=== PATIENT | male | born 1970 | race Asian ===

== ENCOUNTER 2017-03-07 08:15 | Inpatient (IN) | payer BC ==
[~2017-03-07 08:15] MED LIST: POVIDONE-IODINE 20 ML in SODIUM CL IRRIG SOLUTION 500 ML IRR ONE; ROPIVACAINE 0.2% 80 MG, EPINEPHrine 0.2 MG, KETOROLAC TROMETHAMINE 30 MG in BAG 0 ML IU ONE; TRANEXAMIC ACID 1,360 MG in NS 100 ML IV ONE
[2017-03-07] MEDS ORDERED: ceFAZolin 1 GM/5 ML SYR ONE ×2 (08:30→10:42)
[2017-03-07] MEDS ORDERED: FAMOTIDINE 20 MG TAB PO ONE (09:05)
[2017-03-07] MEDS ORDERED: ACETAMINOPHEN 325 MG TAB PO ONE (09:05)
[2017-03-07] MEDS ORDERED: DEXAMETHASONE 4 MG/ML VIAL IVP ONE (09:05)
[2017-03-07] MEDS ORDERED: ceFAZolin 2 GM/DEXTROSE 100 ML IV ONE (09:05)
[2017-03-07] MEDS ORDERED: LIDOCAINE 1% 2 ML INJ ID PRN (09:07)
[2017-03-07] MEDS ORDERED: LR 1,000 ML IV ONE (09:07)
[2017-03-07] MEDS ORDERED: CEFAZOLIN 1 GM/DEXTROSE/50 ML BAG IV ONE (09:34)
[2017-03-07] MEDS ORDERED: CEFAZOLIN 2 GM/DEXTROSE/100 ML BAG IV ONE (09:46)
--- NOTE | 2017-03-07 10:07 | PDHPUP ---
History & Physical Update H&P update statement: This history and physical update is based on an assessment of the patient which was completed after admission or registration (within 24 hours), but prior to the surgery/procedure. H&P update: H&P reviewed & patient examined, no change in patient's condition since H&P completed
[2017-03-07] MEDS ORDERED: MIDAZOLAM 2 MG/2 ML VIAL ONE (10:43)
[2017-03-07] MEDS ORDERED: MIDAZOLAM 2 MG/2 ML VIAL IVP ONE (10:44)
--- NOTE | 2017-03-07 10:45 | PDANEPAE ---
ANE History of Present Illness r hip pain, arthritis ANE Past Medical History - Cardiovascular History Hx Hypertension: No Hx Arrhythmias: No Hx Chest Pain: No Hx Coronary Artery / Peripheral Vascular Disease: No Hx CHF / Valvular Disease: No Hx Palpitations: No - Pulmonary History Hx COPD: No Hx Asthma/Reactive Airway Disease: No Hx Recent Upper Respiratory Infection: No Hx Oxygen in Use at Home: No Hx Sleep Apnea: No Sleep Apnea Screening Result - Last Documented: Negative - Neurologic History Hx Cerebrovascular Accident: No Hx Seizures: No Hx Dementia: No - Endocrine History Hx Diabetes: No - Renal History Hx Renal Disorders: No - Liver History Hx Hepatic Disorders: No - Neurological & Psychiatric Hx Hx Neurological and Psychiatric Disorders: No - Cancer History Hx Cancer: No - Congenital Disorder History Hx Congenital Disorders: No - GI History Hx Gastrointestinal Disorders: No - Other Health History Other Health History: OA R hip - Chronic Pain History Chronic Pain: Yes (R hip) - Surgical History Prior Surgeries: none ANE Review of Systems - Exercise capacity METS (RN): 5 METS ANE Patient History - Allergies Allergies/Adverse Reactions: No Known Allergies Allergy (Unverified 02/05/17 10:42) - Home Medications Home Medications: NK [No Known Home Meds] 02/05/17 [Last Taken Unknown] - NPO status NPO Since - Liquids (Date): 03/07/17 NPO Since - Liquids (Time): 07:30 NPO Since - Solids (Date): 03/06/17 NPO Since - Solids (Time): 22:00 - Smoking Hx Smoking Status: Never smoked - Family Anes Hx Family Hx Anesthesia Complications: none ANE Labs/Vital Signs - Vital Signs Blood Pressure: 120/79 Heart Rate: 63 Respiratory Rate: 12 O2 Sat (%): 97 Height: 170.18 cm Weight: 68.039 kg ANE Physical Exam - Airway Neck exam: FROM Mallampati Score: Class 1 Mouth exam: normal dental/mouth exam - Pulmonary Pulmonary: no respiratory distress - Cardiovascular Cardiovascular: regular rate and rhythym - ASA Status ASA Status: I ANE Anesthesia Plan Anesthesia Plan: MAC, spinal
[2017-03-07] MEDS ORDERED: PROPOFOL/EMULSION 500 MG/50 ML BOTTLE IV ONE ×2 (10:47→12:07)
[2017-03-07] MEDS ORDERED: DEXAMETHASONE 4 MG/ML VIAL IVP PRN (11:45)
[2017-03-07] MEDS ORDERED: fentaNYL 100 MCG/2 ML INJ IVP PRN (11:45)
[2017-03-07] MEDS ORDERED: ONDANSETRON 4 MG/2 ML VIAL IVP PRN ×2 (11:45→13:00)
[2017-03-07] MEDS ORDERED: HYDROmorphONE/DILAUDID 1 MG/ML SYR IVP PRN (11:45)
[2017-03-07] MEDS ORDERED: NALOXONE HCL 0.4 MG/ML INJ IVP PRN (11:45)
[2017-03-07] MEDS ORDERED: DEXAMETHASONE 4 MG/ML VIAL ONE (11:46)
[2017-03-07] MEDS ORDERED: ONDANSETRON 4 MG/2 ML VIAL ONE ×2 (11:46→13:15)
--- NOTE | 2017-03-07 12:45 | POSTOPPROG ---
Post Op Note Date of Operation: 03/07/17 Surgeon: Conner Israel Floating Derrick Operator: Victorino Rivero/Bola Pal Anesthesiologist: Bogdan Anesthesia: IV Sedation, Spinal Post-op Diagnosis: Right hip severe degenerative arthritis. Procedure: Right hip Finley hip resurfacing arthroplasty. Inf/Abcess present in the surg proc area at time of surgery?: No EBL: 100-500
[2017-03-07] MEDS ORDERED: PHARMACY PAIN CONSULT 1 EA MISC PRN (13:00)
[2017-03-07] MEDS ORDERED: oxyCODONE IR 5 MG TAB PO PRN (13:00)
[2017-03-07] MEDS ORDERED: MAGNESIUM HYDROXIDE 30 ML UDCUP PO PRN (13:00)
[2017-03-07] MEDS ORDERED: POLYETHYLENE GLYCOL 3350 17 GM PKT PO PRN (13:00)
[2017-03-07] MEDS ORDERED: METOCLOPRAMIDE 10 MG/2 ML VIAL IVP PRN (13:00)
[2017-03-07] MEDS ORDERED: BISACODYL 10 MG SUPP PR PRN (13:00)
[2017-03-07] MEDS ORDERED: CYCLOBENZAPRINE 10 MG TAB PO PRN (13:00)
[2017-03-07] MEDS ORDERED: LACTULOSE 20 GM/30 ML UDCUP PO PRN (13:00)
[2017-03-07] MEDS ORDERED: PROMETHAZINE HCL 25 MG/ML INJ IVP PRN (13:00)
[2017-03-07] MEDS ORDERED: ONDANSETRON DISINTEGRATING 4 MG TAB PO PRN (13:00)
[2017-03-07] MEDS ORDERED: KETOROLAC 30 MG/1 ML SDV IVP PRN (13:00)
[2017-03-07] MEDS ORDERED: DIPHENOXYLATE/ATROPINE LOMOTIL 1 TAB PO PRN (13:00)
[2017-03-07] MEDS ORDERED: NS 500 ML IV PRN (13:00)
[2017-03-07] MEDS ORDERED: PROMETHAZINE HCL 25 MG SUPPR PR PRN (13:00)
[2017-03-07] MEDS ORDERED: diphenhydrAMINE 25 MG CAP PO PRN (13:00)
[2017-03-07] MEDS ORDERED: TEMAZEPAM 15 MG CAP PO PRN (13:00)
[2017-03-07] MEDS ORDERED: LR 1,000 ML IV SCH (13:00)
--- NOTE | 2017-03-07 13:22 | POSTANESTH ---
Post Anesthetic Evaluation Cardiovascular Status: Normal, Stable Respiratory Status: Normal, Stable Level of Consciousness/Mental Status: Can Participate in Eval Pain Control: Adequate, Prn Tx Ordered Nausea/Vomiting Control: Adequate, Prn Tx Ordered Complications Possibly Related to Anesthesia: None Noted
--- NOTE | 2017-03-07 13:41 | GOP ---
[f rep st] OPERATIVE REPORT DATE OF OPERATION: 03/07/2017 SURGEON: Conner Israel MD DRAWBRIDGE OPERATOR: Victorino Rivero and Bola Pal. ANESTHESIA: A combination of Marcaine, spinal, and IV sedation by Dr. Mata. PREOPERATIVE DIAGNOSIS: Right hip severe degenerative arthritis. POSTOPERATIVE DIAGNOSIS: Right hip severe degenerative arthritis. PROCEDURE PERFORMED: FINDINGS: ESTIMATED BLOOD LOSS: About 400 mL. I used a [employer] Dena hip resurfacing system. The acetabular component was 54 mm in diameter and press-fit. The femoral head was 48 mm and cemented. He was awakened from anesthesia and rolled to the supine position on his [facility]. A long-le g compressive stocking and SCD were applied to the operative leg. An abduction pillow was placed be tween his knees. He was taken to PACU in satisfactory condition. There were no recognized intraope rative complications. The sponge and needle count were correct on 2 occasions. Victorino Rivero and Bola Pal acted as surgical assistants. Their assistance was a medical neces sity for the safe completion of the procedure. DESCRIPTION OF PROCEDURE: The patient was given 2 g of IV Ancef preoperatively within 60 minutes of surgery. He also received IV tranexamic acid at a dose of 20 mg/kg. He was placed on the operatin g room table and given spinal anesthesia with Marcaine by Dr. Mata. He was then placed supine and given IV sedation. A Griffin catheter was not used. He wore a stocking and SCD on the nonoperative leg. He was rolled to the left lateral decubitus position. An axillary roll was used, and all pres sure points were padded. The position was secured with the pegboard table attachment. I was carefu l to lock his pelvis in a vertical position. His perineum was isolated with plastic adhesive drapes . The left hip and left lower extremity were prepped with ChloraPrep. They were draped free using sterile sheets, stockinette, and Ioban plastic drape. The [employer] time-out was performed to verify the correct patient identity and the correct surgical side and site. The [place] time-out was also performed. I made a 6-inch straight oblique posterolateral hip skin incision. The subcutaneous tissues were sh arply divided, and hemostasis was obtained using electrocautery. His fascia harvey was identified and split along the axis of its fibers. I then curved posteriorly and proximally and split the fascia of the gluteus leighton and bluntly split the muscle fibers in line with their orientation. His scia tic nerve was identified and protected throughout the procedure. The Charnley self-retaining retrac tor was inserted. The external rotators and the posterior hip capsule were divided as separate laye rs at the base of the femoral neck, tagged, and reflected posteriorly. The gluteus leighton tendon w as divided and tagged in order to improve exposure and release tension on the sciatic nerve. His hi p was dislocated posteriorly. I used a sizing gauge to check the diameter of the neck and concluded that 48 mm was the proper head size. He had a lot of osteophytes on the anterior femoral neck area at the junction between the neck and the head. I performed a circumferential capsulotomy. I was a ble to retract the femoral head anteriorly and superiorly, and hold it out of place with appropriate retractors. The remnant of his damaged labrum was excised. The acetabulum was reamed sequentially up to 54 mm. I selected the Dena monoblock porous-coated acetabular component with an outsid e diameter of 54 mm. This was firmly impacted and was a very tight fit. I was careful to determine proper inclination and anteversion. I used the transverse acetabular ligament and other acetabular bony landmarks to help me properly orient the cup. He had very large anterior inferior and posteri or inferior periacetabular osteophytes. These were removed with an osteotome and rongeur. I was ca reful to leave a good lip of bone extending beyond the anterior-inferior lip of the metal cup. I then returned to preparation femoral head. Using appropriate jigs and guides, I inserted a guide pin in the femoral head and neck. I was careful to position in such a way so there would be no notc nubia of the neck. I was also careful to translate the head component anteriorly to create a better anterior head neck offset. A large sterile metal goniometer was used to check the neck shaft angle. I reamed over the guide pin and inserted the reaming guide. I then used the cylindrical reamer do wn to the head and neck junction. This was followed by the flat reamer and the chamfer reamer. The head was sized for 48 mm. There was no impingement or damage to the neck. I drilled a small hole in the lesser trochanter and inserted a suction cannula to create negative pressure in the medullary canal. Small holes were drilled on the flattened and chamfer surfaces of the prepared head for suresh ent anchors. The head was thoroughly cleaned with the pulsating lavage and carefully dried. I used a CarboJet device to blow dry the cancellous surfaces. A single batch of Simplex cement with tobra mycin was mixed. At about 50 seconds, I poured the liquid cement into the head component, inserted it onto the femoral head and impacted it into place. Excess cement was removed before it hardened. The acetabulum was irrigated, cleaned, and inspected, and the hip was reduced. Stability and range of motion were checked. I placed my finger along the anterior aspect of the acetabular component a nd flexed the hip to 110 degrees. There was no anterior impingement. The suction cannula in the le sser trochanter was removed. The wound was thoroughly irrigated with a dilute Betadine solution. 4 0 mL of the joint anesthetic cocktail were injected into the capsule, the musculature, and the subcu taneous tissues along the skin edges. His sciatic nerve was reinspected and looked unharmed. The external rotators and the posterior hip capsule were repaired in separate layers with #2 FiberWire sutures through drill holes in the greate r trochanter. This provided a strong posterior capsular and external rotator repair. The gluteus m aximus tendon was repaired with 2 interrupted [id number] #2 FiberWire sutures. The fascia harvey was repaired first with 2 interrupted [id number] #2 FiberWire sutures, followed by a running # 2 barbed Ethicon Stratafix PDO suture. Subcutaneous tissues were closed with a running 0 barbed Eth icon Stratafix Monoderm suture. The skin was closed with a running 3-0 barbed Ethicon Stratafix Mon oderm subcuticular suture. The skin edges were reapproximated and sealed with Dermabond glue. The wound was covered with a strip of Telfa, and everything was held in place with a piece of clear plas tic Tegaderm. OPERATIONS PERFORMED: 03/07/2017, a right hip Dena hip resurfacing arthroplasty. /[id number]/MODL
[2017-03-07] MEDS: ACETAMINOPHEN 325 MG TAB PO SCH ×2 (17:38→23:06)
[2017-03-07] MEDS: ceFAZolin 2 GM/DEXTROSE 100 ML IV SCH (18:49)
[2017-03-07] MEDS: SENNOSIDES/DOCUSATE SODIUM TAB PO SCH (21:20)
[2017-03-07] MEDS: FAMOTIDINE 20 MG TAB PO SCH (21:20)
[2017-03-07] MEDS: ASPIRIN 325 MG TAB PO SCH (21:20)
[2017-03-08] MEDS: traMADol 50 MG TAB PO PRN ×2 (00:30→05:53)
[2017-03-08] MEDS: ceFAZolin 2 GM/DEXTROSE 100 ML IV SCH (03:32)
[2017-03-08 04:52] LABS: HEMATOCRIT 35.9 % (40.0-51.0); HEMOGLOBIN 12.4 g/dL (13.7-17.5)
[2017-03-08] MEDS: ACETAMINOPHEN 325 MG TAB PO SCH ×2 (05:53→13:37)
[2017-03-08 07:50] VITALS: BP 105/57; PULSE 52; RESP 13; TEMP 97.9
--- NOTE | 2017-03-08 08:45 | SOAPPROG ---
SOAP Progress Note Assessment/Plan: Assessment: POD #1, s/p R BHR. Awake, alert, afebrile. Normal sciatic nerve function. Dressing clean and dry. H/H ok. OOB with PT. Mild pain. Post op films look good. Plan: PT/OT today. Discharge to home later today. 03/08/17 08:39 Objective: Vital Signs Temp Pulse Resp BP Pulse Ox 36.6 C 52 L 13 105/57 L 94 03/08/17 07:48 03/08/17 07:48 03/08/17 07:48 03/08/17 07:48 03/08/17 07:48 Laboratory Results 03/08/17 04:23 03/07/17 03/08/17 03/09/17 05:59 05:59 05:59 Intake Total 1750 Output Total 1550 Balance 200 ICD10 Worksheet Patient Problems: Problems Problem Status Onset Osteoarthritis of right hip Acute
[2017-03-08] MEDS ORDERED: FERROUS SULFATE 140 MG TAB.ER PO SCH (09:00)
[2017-03-08] MEDS: ASPIRIN 325 MG TAB PO SCH (09:18)
[2017-03-08] MEDS: SENNOSIDES/DOCUSATE SODIUM TAB PO SCH (09:18)
[2017-03-08] MEDS: FAMOTIDINE 20 MG TAB PO SCH (09:20)
[2017-03-08 14:55] VITALS: O2SAT 98
== END 2017-03-08 15:08 | disposition home or self-care (01) | DRG 470 ==
LOC: EDSTATUS 08:15 → F3N 08:45
PROVIDERS: ADMIT Orthopaedic Surgery; ATTEND Orthopaedic Surgery
PROC: 0SR90J9 Replacement of Right Hip Joint with Synthetic Substitute, Cemented, Open Approach (ICD-10-PCS; principal; 2017-03-07 10:45)
DX: M16.11 Unilateral primary osteoarthritis, right hip (principal)
CPT/HCPCS: 97161-GP; 97165-GO; C1713; C1769; J0171; J0690; J1100; J1885; J2250; J2405; J2704; J2765; J2795